=== PATIENT | male | born 1965 | race Caucasian/White ===

== ENCOUNTER → 2018-04-23 09:19 | Outpatient (CLI) | payer BC, SELFPAY ==
[2018-04-23 10:08] LABS: Basophils % 0.6 % (0.1-2.0); Eosinophils # 0.4 K/mm3 (0.0-0.4); Eosinophils % 5.9 % (0.1-12.0); Hematocrit 46.7 % (42.0-52.0); Hemoglobin 15.9 g/dL (14.1-18.0); Lymphocytes # 1.4 K/mm3 (0.7-4.5); Lymphocytes % 19.4 % (10-50); Mean Corpuscular HGB Conc 34.1 g/dL (31.8-35.4); Mean Corpuscular Hemoglobin 30.7 pg (27.0-31.2); Mean Corpuscular Volume 90.1 fl (80-94); Mean Platelet Volume 7.1 fl (7.4-10.4); Monocytes # 0.5 K/mm3 (0.1-1.0); Monocytes % 7.2 % (1.7-9.3); Neutrophils # 4.8 K/mm3 (1.8-7.8); Neutrophils % 66.8 % (37.0-80.0); Platelet Count 248 K/mm3 (142-424); Red Blood Count 5.19 M/mm3 (4.60-6.20); Red Cell Distribution Width 13.6 % (11.5-17.5); White Blood Count 7.2 K/mm3 (4.8-10.8)
[2018-04-23 11:12] LABS: Alanine Aminotransferase 36 U/L (12-78); Albumin Level 3.9 gm/dL (3.4-5.0); Albumin/Globulin Ratio 1.2 (1.1-1.8); Alkaline Phosphatase 98 U/L (46-116); Anion Gap 13.5 mEq/L (5-15); Aspartate Amino Transferase 15 U/L (15-37); Bilirubin,Total 0.7 mg/dL (0.2-1.0); Blood Urea Nitrogen 17 mg/dL (7-18); Calcium 8.9 mg/dL (8.5-10.1); Carbon Dioxide 27 mmol/L (21.0-32.0); Chloride 104 mmol/L (98-107); Chol/HDL Ratio 4.8 (1-3.5); Cholesterol 209 mg/dL (140-200); Creatinine,Serum 0.99 mg/dL (0.70-1.30); Estimated Glomerular Filt Rate 79 ml/min (>60); GFR (African American) 95 ML/MIN (>60); Globulin 3.2 gm/dl (1.3-3.2); Glucose 109 mg/dL (74-106); HDL Cholesterol 44 mg/dL (27-67); LDL Cholesterol 134 mg/dL (0-130); Potassium 4.5 mmoL/L (3.5-5.1); Prostate Specific Ag Screen 0.7 ng/mL (0.0-4.0); Sodium 140 mmol/L (136-145); Total Protein,Serum 7.1 gm/dL (6.4-8.2); Triglycerides 153 mg/dL (30-200); VLDL Cholesterol 31 mg/dL (0-40)
[2018-04-24 07:46] LABS: Free Thyroxine Index 2.6 ug/dL (5.93-13.13); T4 (Thyroxine) 6.6 ug/dl (4.7-13.3); Thyroid Stimulating Hormone 1.55 uIU/ml (0.358-3.740); Triiodothryronine (T3) Uptake 39 % (31-39)
[2018-04-25 08:01] LABS: Testosterone,Total 541 ng/dL (264-916); Vitamin B12 337 pg/mL (232-1245)
[2018-04-25 08:02] LABS: Vitamin D 25 Hydroxy 24.9 ng/mL (30.0-100.0)
== END ==
PROVIDERS: Nurse Practitioner Family; Visit Provider Internal Medicine Adolescent Medicine
DX: R73.9 Hyperglycemia, unspecified (principal); N52.9 Male erectile dysfunction, unspecified; R53.83 Other fatigue; R53.81 Other malaise; J01.00 Acute maxillary sinusitis, unspecified; Z86.39 Personal history of other endocrine, nutritional and metabolic disease
CPT/HCPCS: 36415; 80053; 80061; 82607; 82652; 83036; 84403; 84436; 84443; 84479; 85025; G0103

== ENCOUNTER → 2019-07-20 08:10 | Outpatient (CLI) | payer BC, SELFPAY ==
[2019-07-20 14:11] LABS: Coronavirus 19 IgG Antibody Negative (Negative); Coronavirus 19 IgM Antibody Negative (Negative)
== END ==
PROVIDERS: Visit Provider Internal Medicine Gastroenterology
DX: Z01.818 Encounter for other preprocedural examination (principal); Z12.11 Encounter for screening for malignant neoplasm of colon
CPT/HCPCS: 36415; 86328

== ENCOUNTER 2019-07-21 08:28 | Day surgery (SDC) | payer BC, SELFPAY ==
[2019-07-18 11:42] VITALS: BMI 36.1
--- NOTE | 2019-07-19 09:54 | SUR.PREOP ---
07/19/2019 @ 1000--PHONE CALL MADE TO PATIENT. PATIENT UNDERSTANDS THAT LAB WORK AND COVID TESTING NEEDS TO BE COMPLETED @ 0800 ON 07/20/2019. PATIENT UNDERSTANDS IF LAB WORK AND COVID-19 TESTS ARE NOT COMPLETED BY 12PM ON THAT DATE, THE SURGERY SCHEDULED WILL BE CANCELLED AND RESCHEDULED FOR ANOTHER TIME.
[2019-07-21 08:48] VITALS: BP 144/83; PULSE 85; RESP 18; TEMP 36.9; O2SAT 97
[2019-07-21 09:38] VITALS: O2SAT 95
--- NOTE | 2019-07-21 09:48 | HMH.ANESCL ---
[facility] Anesthesia Checklist - Structural Data Admitted From: Home Planned Operative Procedure/s: colonoscopy Consent for Planned Operative Procedure(s) Verified: Yes - Airway Assessment C-Spine Mobility Assessed: Yes TMJ Mobility Assessed: Yes Dentition: Good Dentition - Neurological Assessment Level of Consciousness: Awake, Alert, Appropriate - Anesthesia Plan Anesthesia Risk discussed: Yes Anesthesia Plan: Verified ASA Class: II Anesthesia Type: MAC [facility] History I have reviewed the patient's past medical history: Yes Medical History: Reports:: Hypertension Denies:: Cancer, Diabetes Mellitus Type 1, Diabetes Mellitus Type 2, Internal Pacemaker, MRSA, Seizures *Have you ever received a pneumonia vaccine?: No *Have you received a flu vaccine this season?: No Anesthesia experience/problems:: none Laterality Cases: Left: Total Knee Replacement, Bilateral: Carpal Tunnel Release Other Surgeries: No: Pacemaker Amputation: No Fractures: No - *Social History Alcohol Intake: current Alcohol Intake Frequency:: 0-2 drinks per day Substance Use Type: denies use *Occupational Status:: employed Housing: house *Travel in the last 8 weeks: None Family Hx:: No significant family history
--- NOTE | 2019-07-21 10:05 | P.PCN_ITS ---
[facility] Procedure Note Procedure Note:: Colonoscopy Procedure Report: Colonoscopy Endoscopist: Sanjay Hall II, MD Referring physician: Bonifacio Andrdae M.D. Date of Procedure: July 19, 2019 Equipment: Olympus 180 variable stiffness pediatric colonoscope Sedation: MAC sedation Indication: Mr. Ross is a 54-year-old gentleman who is here for an initial screening colonoscopy. He reports no abdominal pain, weight loss, change in his bowel habits or rectal bleeding. He does have occasional spotting of blood from internal hemorrhoids. He reports no family history of colon cancer. Procedure: Prior to the procedure, a history and physical exam was performed, and patient's medications and allergies were reviewed. The risks, benefits and alternatives of the sedation and procedure were discussed with the patient. All questions were answered and informed consent was obtained. The patient was brought to the procedure room. Patient identification and proposed procedure were verified by the physician and the nurse. The patient was placed in a left lateral decubitus position and the scope was passed under direct vision. Throughout the procedure, the patient's blood pressure, pulse, and oxygen saturations were monitored continuously. The colonoscopy was accomplished without difficulty. The patient tolerated the procedure well. Findings: On digital rectal examination there was normal rectal tone. There were no external hemorrhoids. The prostate was 2+, smooth, soft, symmetric without nodules. The colonoscope was introduced through the anal canal to the rectum and advanced to the cecum. The ileocecal valve and appendiceal orifice were identified. The scope was advanced a short distance into the ileum which appeared grossly normal. The scope was then withdrawn into the colon. The cecum, ascending, transverse, descending, sigmoid and rectum were grossly normal. There were no mucosal abnormalities identified. Upon retroflexion within the rectum there were grade 1-2 internal hemorrhoids.The preparation was excellent throughout with [place] Preparation Score of 9. The cecal time was 10 minutes. Impression: 1. Normal colonoscopy with intubation of the terminal ileum 2. Grade 1-2 internal hemorrhoids Plan: The patient will not require screening/surveillance colonoscopy again for 10 years by ACS guidelines. I would encourage fiber supplementation on a long-term daily maintenance basis.
[2019-07-21 10:10] VITALS: BP 113/85; PULSE 82; RESP 18; TEMP 36.3; O2SAT 94
[2019-07-21 10:20] VITALS: BP 111/70; PULSE 66; RESP 18; TEMP 36.3; O2SAT 97
[2019-07-21 10:30] VITALS: BP 131/87; PULSE 68; RESP 18; TEMP 36.3; O2SAT 98
[2019-07-21 10:40] VITALS: BP 124/79; PULSE 68; RESP 18; TEMP 36.3; O2SAT 98
== END 2019-07-21 10:43 | disposition home or self-care (01) ==
LOC: OUTP 08:29
PROVIDERS: PCP Internal Medicine Adolescent Medicine; Visit Provider Internal Medicine Gastroenterology
PROC: 0DJD8ZZ Inspection of Lower Intestinal Tract, Via Natural or Artificial Opening Endoscopic (ICD-10-PCS; CPT 45378; principal; 2019-07-21 09:30)
DX: Z12.11 Encounter for screening for malignant neoplasm of colon (principal); K64.0 First degree hemorrhoids; I10 Essential (primary) hypertension; K21.9 Gastro-esophageal reflux disease without esophagitis; Z87.39 Personal history of other diseases of the musculoskeletal system and connective tissue; Z79.899 Other long term (current) drug therapy; Z88.5 Allergy status to narcotic agent; Z96.652 Presence of left artificial knee joint
CPT/HCPCS: 45378

== ENCOUNTER → 2019-08-04 13:18 | Outpatient (CLI) | payer BC, SELFPAY ==
--- NOTE | 2019-08-04 | CA_ITS ---
APPROVED REPORT Rat Culturist: CT Laterality: Bilateral Study Quality: Fair, Due to body habitus. Indications: dizziness, syncope Doppler Spectral Velocity Analysis ECA (R) 79.70/12.80 cm/s ECA (L) 73.20/17.30 cm/s Dede (R) 75.90/28.90 cm/s dICA (L) 64.20/21.80 cm/s pICA (R) 90.40/33.10 cm/s Dede (L) 58.40/22.50 cm/s pICA (L) 50.70/16.70 cm/s dCCA (R) 73.70/21.40 cm/s pCCA (R) 93.40/21.40 cm/s dCCA (L) 100.20/17.10 cm/s pCCA (L) 125.90/19.70 cm/s Vert (R) 37.40/11.60 cm/s ICA/CCA 1.30 Vert (L) 31.20/8.60 cm/s ICA/CCA 0.70 Findings Duplex evaluation demonstrates stenosis of the right proximal internal carotid artery <20% with PSV <140 cm/sec, EDV <100 cm/sec, and IC/CC Ratio <4.0. Duplex evaluation demonstrates stenosis of the left proximal internal carotid artery <20% with PSV <140 cm/sec, EDV <100 cm/sec, and IC/CC Ratio <4.0. Duplex evaluation demonstrates antegrade flow of the bilateral Vertebral Arteries. Conclusion No increased velocities to suggest hemodynamically significant stenosis in either internal carotid artery. Electronically signed by : Yonas Cole MD 08/04/2019 17:02:59
== END ==
PROVIDERS: PCP Internal Medicine Adolescent Medicine; Visit Provider Nurse Practitioner Family
DX: R55 Syncope and collapse (principal)
CPT/HCPCS: 93306; 93880

== ENCOUNTER → 2019-11-06 09:34 | Outpatient (CLI) | payer BC, SELFPAY ==
[2019-11-06 11:45] LABS: Alanine Aminotransferase 23 U/L (12-78); Albumin Level 4.2 g/dl (3.5-5.0); Albumin/Globulin Ratio 1.4 (1.1-1.8); Alkaline Phosphatase 109 U/L (38-126); Aspartate Amino Transferase 25 U/L (17-59); Bilirubin,Total 0.4 mg/dl (0.2-1.3); Blood Urea Nitrogen 15 mg/dl (9-20); Calcium 9.5 mg/dl (8.4-10.2); Carbon Dioxide 29 mmol/L (22.0-30.0); Chloride 107 mmol/L (98-107); Chol/HDL Ratio 4.7 (1-3.5); Cholesterol 227 mg/dl (140-200); Estimated Glomerular Filt Rate 78 ml/min (>60); GFR (African American) 94 ML/MIN (>60); Globulin 2.9 g/dL (1.3-3.2); Glucose 109 mg/dl (74-100); HDL Cholesterol 48 mg/dl (40-60); Sodium 141 mmol/L (136-145); Total Protein,Serum 7.1 g/dl (6.3-8.2); Triglycerides 205 mg/dl (30-150); Uric Acid 7.5 mg/dl (3.5-8.5); VLDL Cholesterol 41 mg/dL (0-40)
[2019-11-06 11:55] LABS: Direct LDL Cholesterol 136.95 mg/dL (100-129)
[2019-11-06 12:01] LABS: 25-OH Vitamin D, Total 72.1 ng/mL (30-100)
[2019-11-07 14:58] LABS: Hemoglobin A1C 6.2 % (4.0-6.0)
== END ==
PROVIDERS: Visit Provider Nurse Practitioner Family
DX: I10 Essential (primary) hypertension (principal); E78.5 Hyperlipidemia, unspecified; M10.9 Gout, unspecified; E55.9 Vitamin D deficiency, unspecified; R73.9 Hyperglycemia, unspecified
CPT/HCPCS: 36415; 80053; 80061; 82306; 83036; 84550

== ENCOUNTER → 2020-02-03 08:29 | Outpatient (CLI) | payer BC, SELFPAY ==
[2020-02-03 10:29] LABS: Alanine Aminotransferase 25 U/L (12-78); Albumin Level 4.4 g/dl (3.5-5.0); Albumin/Globulin Ratio 1.5 (1.1-1.8); Alkaline Phosphatase 93 U/L (38-126); Aspartate Amino Transferase 28 U/L (17-59); Bilirubin,Total 0.7 mg/dl (0.2-1.3); Blood Urea Nitrogen 17 mg/dl (9-20); Calcium 9.7 mg/dl (8.4-10.2); Carbon Dioxide 31 mmol/L (22.0-30.0); Chloride 103 mmol/L (98-107); Chol/HDL Ratio 5.1 (1-3.5); Cholesterol 225 mg/dl (140-200); Estimated Glomerular Filt Rate 77 ml/min (>60); GFR (African American) 94 ML/MIN (>60); Glucose 106 mg/dl (74-100); HDL Cholesterol 44 mg/dl (40-60); Sodium 139 mmol/L (136-145); Total Protein,Serum 7.4 g/dl (6.3-8.2); Triglycerides 190 mg/dl (30-150); Uric Acid 6.9 mg/dl (3.5-8.5); VLDL Cholesterol 38 mg/dL (0-40)
[2020-02-03 10:45] LABS: Direct LDL Cholesterol 138.09 mg/dL (100-129)
[2020-02-03 10:46] LABS: 25-OH Vitamin D, Total 64.7 ng/mL (30-100)
== END ==
PROVIDERS: Visit Provider Nurse Practitioner Family
DX: Z00.00 Encounter for general adult medical examination without abnormal findings (principal); I10 Essential (primary) hypertension; E78.5 Hyperlipidemia, unspecified; E55.9 Vitamin D deficiency, unspecified; M10.9 Gout, unspecified
CPT/HCPCS: 36415; 80053; 80061; 82306; 84550

== ENCOUNTER → 2021-01-06 10:30 | Outpatient (CLI) | payer BC, SELFPAY ==
--- NOTE | 2021-01-06 10:45 | XR_ITS ---
PROCEDURE: XR CHEST 2V CLINICAL HISTORY: PERSISTENT COUGH COMPARISON: CR CXR CHEST(2 VIEWS-NOT PORTABLE) from 12/12/2014 CR CXR CHEST(2 VIEWS-NOT PORTABLE) from 03/02/2016 FINDINGS: The cardiomediastinal silhouette and pulmonary vascularity are within normal limits. The lungs are clear without infiltrates, suspicious nodules, or pleural effusions. No acute bony abnormalities. IMPRESSION: No acute findings. Dictated by: Yonas Cole MD 01/06/2021 11:17 Yonas Cole MD in [place] 01/06/2021 11:17
[2021-01-06 11:35] LABS: Alanine Aminotransferase 30 U/L (12-78); Albumin Level 4.5 g/dl (3.5-5.0); Albumin/Globulin Ratio 1.6 (1.1-1.8); Alkaline Phosphatase 98 U/L (38-126); Anion Gap 11.7 mEq/L (5-15); Aspartate Amino Transferase 29 U/L (17-59); Bilirubin,Total 0.5 mg/dl (0.2-1.3); Blood Urea Nitrogen 13 mg/dl (9-20); Calcium 9.8 mg/dl (8.4-10.2); Carbon Dioxide 30 mmol/L (22.0-30.0); Chloride 102 mmol/L (98-107); Chol/HDL Ratio 5.2 (1-3.5); Cholesterol 246 mg/dl (140-200); Estimated Glomerular Filt Rate 69 ml/min (>60); GFR (African American) 84 ML/MIN (>60); Globulin 2.9 g/dL (1.3-3.2); Glucose 111 mg/dl (74-100); HDL Cholesterol 47 mg/dl (40-60); Potassium 4.7 mmoL/L (3.5-5.1); Sodium 139 mmol/L (136-145); Total Protein,Serum 7.4 g/dl (6.3-8.2); Triglycerides 230 mg/dl (30-150); Uric Acid 8.2 mg/dl (3.5-8.5); VLDL Cholesterol 46 mg/dL (0-40)
[2021-01-06 11:52] LABS: 25-OH Vitamin D, Total 56.2 ng/mL (30-100)
[2021-01-06 20:02] LABS: Hemoglobin A1C 6.5 % (4.0-6.0)
== END ==
PROVIDERS: Nurse Practitioner Family; Visit Provider Nurse Practitioner Family
DX: E78.5 Hyperlipidemia, unspecified (principal); R73.9 Hyperglycemia, unspecified; E55.9 Vitamin D deficiency, unspecified; M10.9 Gout, unspecified
CPT/HCPCS: 36415; 71046; 80053; 80061; 82306; 83036; 84550

== ENCOUNTER → 2021-03-25 10:38 | Outpatient (CLI) | payer BC, SELFPAY ==
--- NOTE | 2021-03-25 10:43 | XR_ITS ---
FINAL REPORT CLINICAL HISTORY: kidney stone FINDINGS: SINGLE VIEW ABDOMEN There is a nonspecific, nonobstructive gas pattern. Bowel gas and stool obscure the renal outlines. There are presumed left renal stones measuring up to 4 mm. There are probably 2 small stones in the lower pole of the right kidney measuring 2 mm. There is fusion of L4-5. IMPRESSION: Nephrolithiasis as above. Reviewed, Interpreted and Dictated by Peewee Partida III, MD Transcribed by Anita Seaman Authenticated by Peewee Partida III, MD on 03/25/2021 11:32:19 AM [facility]
== END ==
PROVIDERS: PCP Internal Medicine Adolescent Medicine; Visit Provider Urology
DX: N20.0 Calculus of kidney (principal)
CPT/HCPCS: 74018

== ENCOUNTER → 2021-04-01 08:27 | Outpatient (CLI) | payer BC, SELFPAY ==
--- NOTE | 2021-04-01 08:31 | XR_ITS ---
FINAL REPORT CLINICAL HISTORY: kidney stone..lt side pain..pain x 2 weeks COMPARISON: 03/25/2021 FINDINGS: SINGLE VIEW ABDOMEN There is a nonspecific, nonobstructive gas pattern. There is no bowel dilatation. There is a moderate amount of stool throughout the colon. There are several bilateral renal stones measuring up to approximately 3 mm. The osseous structures demonstrate fusion at L4-5 and mild degenerative changes of the lumbar spine. IMPRESSION: Bilateral nephrolithiasis. Reviewed, Interpreted and Dictated by Peewee Partida III, MD Transcribed by Anita Seaman Authenticated by Peewee Partida III, MD on 04/01/2021 09:39:32 AM [facility]
== END ==
PROVIDERS: PCP Internal Medicine Adolescent Medicine; Visit Provider Urology
DX: N20.0 Calculus of kidney (principal)
CPT/HCPCS: 74018

== ENCOUNTER 2023-10-25 06:52 | Outpatient (CLI) | payer BC, OTHER, SELFPAY ==
--- NOTE | 2023-10-25 | CT_ITS ---
FINAL REPORT TECHNIQUE: Axial imaging of the lumbar spine was obtained without contrast. Sagittal and coronal reformatted images were also obtained and reviewed. This study was performed with techniques to keep radiation doses as low as reasonably achievable (ALARA). Individualized dose reduction techniques using automated exposure control or adjustment of mA and/or kV according to the patient's size were employed. CLINICAL HISTORY: LBP COMPARISON: None FINDINGS: There is no fracture. Fusion has been performed at the L4-5 level. There is mild retrolisthesis of L2 on L3, and L5 on S1. Vacuum phenomenon is present at the L2-3 and L5-S1 levels. L1-L2: An annular bulge is present with osteophytes, and moderate bilateral neural foraminal narrowing. L2-L3: An annular bulge is present with osteophytes, with severe bilateral neural foraminal narrowing and mild canal stenosis with an AP canal diameter of 7 mm. L3-L4: An annular bulge is present with facet arthropathy and osteophytes. There is severe bilateral neural foraminal narrowing, bilateral lateral recess stenosis, and mild canal stenosis with an AP canal diameter of 7 mm. L4-L5: Fusion has been performed at this level, and there is severe bilateral neural foraminal narrowing. L5-S1: An annular bulge is present with facet arthropathy, and severe bilateral neural foraminal narrowing. Small bilateral nonobstructing renal stones are present. There is mild degenerative change of the sacroiliac joints, more prominent on the right than on the left. IMPRESSION: Multilevel degenerative change of the lumbar spine with multilevel neural foraminal narrowing and mild canal stenosis at the L2-3 and L3-4 levels. Mild degenerative change of the SI joints, more prominent on the right than the left. Several small bilateral nonobstructing renal stones are present.. Reviewed, Interpreted and Dictated by Peewee Partida III, MD Transcribed by Sabi Murphy Authenticated and [facility]
== END 2023-10-25 23:59 | disposition home or self-care (01) ==
LOC: RAD 06:54
PROVIDERS: PCP Internal Medicine Adolescent Medicine; Visit Provider Orthopaedic Surgery
DX: M54.50 Low back pain, unspecified (principal)
CPT/HCPCS: 72131

== ENCOUNTER 2023-11-04 13:46 | Emergency (ER) | payer BC, OTHER, SELFPAY ==
[2023-11-04] VITALS (8 sets, daily range): BP systolic 128–149; BP diastolic 85–97; PULSE 61–99; RESP 13–22; TEMP 36.6–37.2; O2SAT 92–100; BMI 29.0
--- NOTE | 2023-11-04 13:47 | ECG_ITS ---
APPROVED REPORT Exam: Resting ECG HR:88 bpm ECG Measurements Heart Rate 88 AXES SD 140 P 48 QRSd 89 QRS 32 QT 332 T 18 QTc 377 Conclusion SINUS RHYTHM NORMAL ECG UNCONFIRMED REPORT Electronically signed by : JOY LEIVA, 11/05/2023 06:37:48
--- NOTE | 2023-11-04 13:50 | XR_ITS ---
FINAL REPORT CLINICAL HISTORY: Shortness of breath, chest pain COMPARISON: 01/06/2021 FINDINGS: The heart size is normal. The mediastinum is normal. The lungs are underinflated. There are mild chronic changes in the lung bases. There is no focal infiltrate or edema. There are no pleural effusions. There is no pneumothorax. There is no osseous abnormality. IMPRESSION: Chronic changes without acute cardiopulmonary process Reviewed, Interpreted and Dictated by Jerod Flaherty MD Transcribed by Erum Dobbs Authenticated and [facility]
--- NOTE | 2023-11-04 13:50 | [facility].EDGENADL ---
Discharge Plan Disposition Patient Disposition: Home, Self-Care Condition: Good Prescriptions Prescriptions: New naproxen 500 mg tablet 500 mg PO BID Qty: 20 0RF lidocaine [Lidoderm] 5 % adhesive patch,medicated 1 patch topical DAILY Qty: 15 0RF Rx Instructions: leave on most painful area for up to 12 hrs No Action hydromorphone 2 MG tablet 2 mg PO Q4HP PRN (Reason: Moderate To Severe Pain) Qty: 10 0RF meloxicam 15 MG tablet 15 mg PO DAILY famotidine 20 MG tablet 20 mg PO BID lisinopril 10 MG tablet 10 mg PO DAILY cyanocobalamin (vitamin B-12) 5,000 MCG tablet,disintegrating 2,500 mcg PO DAILY cholecalciferol (vitamin D3) 1,000 UNIT capsule 5,000 unit PO DAILY Referrals Follow up/Referrals: Renee Estrada APRN [Primary Care Provider] - See instructions Activity Restrictions/Add. Instructions Additional Instructions/Restrictions: You were evaluated in the emergency department today. Please pickler helper your prescriptions at the pharmacy and take them as prescribed. Follow-up closely with your primary care provider. Return to the emergency department for new or worsening symptoms. Clinical Impressions Clinical Impression: Pleurisy Instructions Patient Instructions: DI for Atypical Chest Pain, DI for Chest Pain Print Language Print Language: Persian Discharge ED Provider: Ekaterina Bennett General Adult HPI <Gerald Edwards MD - Last Filed: 11/04/23 15:52> General Chief complaint: Shortness of Breath/Dyspnea Stated complaint: chest pain Time Seen by Provider: 11/04/23 13:50 History of Present Illness HPI narrative: The patient presents with right-sided chest pain that worsens upon straightening up and causes difficulty in taking deep breaths. The pain began gradually today and has been progressively worsening. He denies any recent illness, cough, or travel. He has a history of L4-L5 fusion and is scheduled for an epidural injection tomorrow. He denies any wheezing but reports that the shortness of breath is secondary to the pain. The pain is described as deep and located around the right side, extending to the back. He has a history of costochondritis but reports that the current pain feels different. He denies any lung or heart conditions, blood clots, leg pain, or leg swelling. He admits to smoking marijuana. He reports taking ibuprofen and a hot shower for relief, but the pain has continued to worsen. He mentions cleaning the front porch a few days ago, which caused some pain. He describes the pain as different from his previous experience with costochondritis, stating that it's not as severe but worsens when stretching out. He denies any relation between the pain and meals and confirms having his gallbladder. He reports no nausea. Please note that above description of symptoms, in this electronic medical record under categorization of recalled from ER triage doctor by RN are reflective of an initial nursing assessment, however, is not reflective of my full history and physical exam that was personally taken and clarified. Consequentially, this preceding description of symptoms, which may include the patient's categorized chief complaint in the EMR, do not reflect my personal clinical impression, and the ultimate description of history of present illness and patient stated complaints should be deferred to this section of the note. Unless stated otherwise or congruent with this section of the note, additional signs, symptoms, or incongruence should be interpreted as inaccurate with my clinical impression. Related Data Home Medications ?Medication ?Instructions ?Recorded ?Confirmed cholecalciferol (vitamin D3) 25 5,000 unit PO DAILY Supplement 07/18/19 04/01/21 mcg (1,000 unit) capsule cyanocobalamin (vitamin B-12) 2,500 mcg PO DAILY Supplement 07/18/19 04/01/21 5,000 mcg disintegrating tablet famotidine 20 mg tablet 20 mg PO BID acid reflux 07/18/19 04/01/21 lisinopril 10 mg tablet 10 mg PO DAILY bp 07/18/19 04/01/21 meloxicam 15 mg tablet 15 mg PO DAILY Arthritis 07/18/19 04/01/21 Previous Rx's ?Medication ?Instructions ?Recorded hydromorphone 2 mg tablet 2 mg PO Q4HP PRN Moderate To 03/25/21 Severe Pain #10 tabs lidocaine 5 % topical patch 1 patch topical DAILY #15 ea 11/04/23 (Lidoderm) naproxen 500 mg tablet 500 mg PO BID #20 tabs 11/04/23 Allergies Allergy/AdvReac Type Severity Reaction Status Date / Time celecoxib [From Celebrex] Allergy Verified 04/01/21 09:13 hydrocodone Allergy Verified 04/01/21 09:13 [facility] <Gerald Edwards MD - Last Filed: 11/04/23 15:52> [facility] Disclaimer: The information contained in this section may have been updated after the patient was seen, as this information can be updated by other users. Social History Smoking Status: Current every day smoker alcohol intake: current alcohol intake frequency: 0-2 drinks per day substance use type: denies use current occupational status: employed Travel in the last 8 weeks: None household members: spouse and family housing: house caffeine: Yes <Gerald Edwards MD - Last Filed: 11/04/23 15:52> ROS Obtained: Yes other As per HPI Physical Exam <Gerald Edwards MD - Last Filed: 11/04/23 15:52> General General appearance: alert and in no apparent distress Head Head exam: atraumatic and normocephalic Eye Eye exam: Present normal appearance Neck Neck exam: Present normal inspection Chest Chest inspection: Present normal inspection and symmetric chest wall rise Respiratory Respiratory exam: Present normal lung sounds bilaterally; Absent respiratory distress Cardiovascular Cardiovascular exam: Present regular rate and normal rhythm Abdominal Exam Abdominal exam: Present soft Neurological Exam Neurological exam: Present alert and oriented X3 Psychiatric Psychiatric exam: Present normal affect and normal mood Skin Skin exam: Present warm and dry Other Other exam information: No abdominal tenderness to palpation, no overt chest wall reproducible tenderness to palpation Medical Decision Making <Gerald Edwards MD - Last Filed: 11/04/23 15:52> Medical Records Medical records reviewed: Yes I reviewed the patient's medical records. Screening: Per USPSTF and CDC recommendations, given the prevalence of disease in our region, it is our hospital?s policy to screen for HIV and viral Hepatitis for all patients aged 18 and over and those with ongoing risk factors. Andres Inquiry Pt receiving controlled substance: No Vital Signs: 11/04/23 13:47 11/04/23 14:30 11/04/23 15:00 Temperature 99.0 F Temperature Source Oral Pulse Rate 79 67 Pulse Rate [Left Radial] 99 H Respiratory Rate 13 22 13 Blood Pressure 142/86 H 132/86 Blood Pressure [Right Arm] 149/97 H Blood Pressure Mean Blood Pressure Mean [Right Arm] 114 Blood Pressure Source Blood Pressure Position 02 Sat by Pulse Oximetry 100 98 92 L Oxygen Delivery Method Room Air Room Air Room Air 11/04/23 15:30 11/04/23 16:00 11/04/23 16:30 Temperature Temperature Source Pulse Rate 68 65 72 Pulse Rate [Left Radial] Respiratory Rate 16 18 16 Blood Pressure 140/93 H 139/90 128/85 Blood Pressure [Right Arm] Blood Pressure Mean 113 110 113 Blood Pressure Mean [Right Arm] Blood Pressure Source Blood Pressure Position 02 Sat by Pulse Oximetry 94 L 95 98 Oxygen Delivery Method 11/04/23 17:00 11/04/23 17:44 Temperature 97.9 F Temperature Source Oral Pulse Rate 61 68 Pulse Rate [Left Radial] Respiratory Rate 20 16 Blood Pressure 137/86 146/87 H Blood Pressure [Right Arm] Blood Pressure Mean 103 Blood Pressure Mean [Right Arm] Blood Pressure Source Automatic Cuff Blood Pressure Position Sitting 02 Sat by Pulse Oximetry 99 Oxygen Delivery Method Room Air Lab Data Lab Results 11/04/23 13:50: WBC 9.6, RBC 5.33, Hgb 16.9, Hct 53.3 H, MCV 100.0 H, MCH 31.7 H, MCHC 31.7 L, RDW 13.7, Plt Count 274, MPV 7.7, Neut % (Auto) 71.9, Lymph % (Auto) 19.0, [place] % (Auto) 6.3, Eos % (Auto) 2.0, Baso % (Auto) 0.8, Neut # (Auto) 6.9, Lymph # (Auto) 1.8, [place] # (Auto) 0.6, Eos # (Auto) 0.2, Baso # (Auto) 0.1, Sodium 139, Potassium 4.2, Chloride 106, Carbon Dioxide 29, Anion Gap 8.2, BUN 14, Creatinine 0.90, Estimated Creat Clear 102, Estimated GFR 86, Est GFR ( Amer) 105, Glucose 126 H, Calcium 9.7, Total Bilirubin 0.6, AST 37, ALT 39, Alkaline Phosphatase 90, Troponin I < 0.01, NT-Pro-B Natriuret Pep 21.2, Total Protein 7.8, Albumin 4.6, Globulin 3.2, Albumin/Globulin Ratio 1.4, Lipase 87, HIV 1&2 Antibody Rapid Nonreactive 11/04/23 16:36: Troponin I < 0.01 11/04/23 13:50 11/04/23 13:50 Orders (Tests/Meds): ED MEDICATIONS Discontinued Medications Generic Name Dose Route Start Last Admin Trade Name Freq PRN Reason Stop Dose Admin Iopamidol 70 ml 11/04/23 14:48 11/04/23 14:50 Iopamidol-370 (76%);100ml Bottle IV 11/04/23 14:49 70 ml ONCE ONE Administration Ketorolac Tromethamine 15 mg 11/04/23 14:50 11/04/23 15:02 Ketorolac 30mg/Ml Vial IV 11/04/23 14:51 15 mg ONCE ONE Administration Methocarbamol 1,000 mg 11/04/23 14:50 11/04/23 15:01 Methocarbamol 500mg Tablet PO 11/04/23 14:51 1,000 mg ONCE STA Administration Sodium Chloride 10 ml 11/04/23 14:48 11/04/23 14:49 Sodium Chloride 0.9% 10ml Syr (Rad Only) IV 11/04/23 14:49 10 ml ONCE ONE Administration Sodium Chloride 50 ml 11/04/23 14:48 11/04/23 14:49 0.9 % Sodium Chloride 50 Ml Vial IV 11/04/23 14:49 50 ml ONCE ONE Administration ORDERS Category Date Time Status CTA Chest [CT angio chest PE protocol] Stat Cat Scan 11/04/23 14:35 Completed XR chest portable Stat Exams 11/04/23 13:50 Completed BNP [NT Pro Brain Natriuretic Pep.] Stat Lab 11/04/23 13:50 Completed CBC w/Auto Diff [Complete Blood Count Auto Diff] Stat Lab 11/04/23 13:50 Completed CMP [Comprehensive Metabolic Panel] Stat Lab 11/04/23 13:50 Completed HIV (1&2) Antibody Rapid Stat Lab 11/04/23 13:50 Completed Hep C Ab with Reflex to RNA Stat Lab 11/04/23 13:50 Received Lipase Stat Lab 11/04/23 13:50 Completed Troponin I Q3H Lab 11/04/23 13:50 Completed Troponin I Q3H Lab 11/04/23 16:36 Completed HEART Score History (anamnesis): Moderately suspicious ECG: Non-specific disturbance Age: 45-65 years Risk factors: 1-2 risk factors Troponin: </= normal limit HEART Score: 4 Medical Decision Narrative: Patient with history and exam per above presenting for evaluation of right-sided chest pain Diagnoses considered include costochondritis, pleural effusion, referred pain from pneumonia, pulmonary embolism, ACS, among others ED workup and treatment included: ED MEDICATIONS Discontinued Medications Generic Name Dose Route Start Last Admin Trade Name Augie PRN Reason Stop Dose Admin Iopamidol 70 ml 11/04/23 14:48 11/04/23 14:50 Iopamidol-370 (76%);100ml Bottle IV 11/04/23 14:49 70 ml ONCE ONE Administration Ketorolac Tromethamine 15 mg 11/04/23 14:50 11/04/23 15:02 Ketorolac 30mg/Ml Vial IV 11/04/23 14:51 15 mg ONCE ONE Administration Methocarbamol 1,000 mg 11/04/23 14:50 11/04/23 15:01 Methocarbamol 500mg Tablet PO 11/04/23 14:51 1,000 mg ONCE STA Administration Sodium Chloride 10 ml 11/04/23 14:48 11/04/23 14:49 Sodium Chloride 0.9% 10ml Syr (Rad Only) IV 11/04/23 14:49 10 ml ONCE ONE Administration Sodium Chloride 50 ml 11/04/23 14:48 11/04/23 14:49 0.9 % Sodium Chloride 50 Ml Vial IV 11/04/23 14:49 50 ml ONCE ONE Administration ORDERS Category Date Time Status CTA Chest [CT angio chest PE protocol] Stat Cat Scan 11/04/23 14:35 Taken XR chest portable Stat Exams 11/04/23 13:50 Taken BNP [NT Pro Brain Natriuretic Pep.] Stat Lab 11/04/23 13:50 Completed CBC w/Auto Diff [Complete Blood Count Auto Diff] Stat Lab 11/04/23 13:50 Completed CMP [Comprehensive Metabolic Panel] Stat Lab 11/04/23 13:50 Completed HIV (1&2) Antibody Rapid Stat Lab 11/04/23 13:50 Received Hep C Ab with Reflex to RNA Stat Lab 11/04/23 13:50 Received Lipase Stat Lab 11/04/23 13:50 Completed Troponin I Q3H Lab 11/04/23 13:50 Completed Troponin I Q3H Lab 11/04/23 17:00 Ordered Results pending at this time. Care was transferred to incoming physician. <Ekaterina Bennett, DO - Last Filed: 11/04/23 17:55> Vital Signs: 11/04/23 13:47 11/04/23 14:30 11/04/23 15:00 Temperature 99.0 F Temperature Source Oral Pulse Rate 79 67 Pulse Rate [Left Radial] 99 H Respiratory Rate 13 22 13 Blood Pressure 142/86 H 132/86 Blood Pressure [Right Arm] 149/97 H Blood Pressure Mean Blood Pressure Mean [Right Arm] 114 Blood Pressure Source Blood Pressure Position 02 Sat by Pulse Oximetry 100 98 92 L Oxygen Delivery Method Room Air Room Air Room Air 11/04/23 15:30 11/04/23 16:00 11/04/23 16:30 Temperature Temperature Source Pulse Rate 68 65 72 Pulse Rate [Left Radial] Respiratory Rate 16 18 16 Blood Pressure 140/93 H 139/90 128/85 Blood Pressure [Right Arm] Blood Pressure Mean 113 110 113 Blood Pressure Mean [Right Arm] Blood Pressure Source Blood Pressure Position 02 Sat by Pulse Oximetry 94 L 95 98 Oxygen Delivery Method 11/04/23 17:00 11/04/23 17:44 Temperature 97.9 F Temperature Source Oral Pulse Rate 61 68 Pulse Rate [Left Radial] Respiratory Rate 20 16 Blood Pressure 137/86 146/87 H Blood Pressure [Right Arm] Blood Pressure Mean 103 Blood Pressure Mean [Right Arm] Blood Pressure Source Automatic Cuff Blood Pressure Position Sitting 02 Sat by Pulse Oximetry 99 Oxygen Delivery Method Room Air Lab Data Lab Results 11/04/23 13:50: WBC 9.6, RBC 5.33, Hgb 16.9, Hct 53.3 H, MCV 100.0 H, MCH 31.7 H, MCHC 31.7 L, RDW 13.7, Plt Count 274, MPV 7.7, Neut % (Auto) 71.9, Lymph % (Auto) 19.0, [place] % (Auto) 6.3, Eos % (Auto) 2.0, Baso % (Auto) 0.8, Neut # (Auto) 6.9, Lymph # (Auto) 1.8, [place] # (Auto) 0.6, Eos # (Auto) 0.2, Baso # (Auto) 0.1, Sodium 139, Potassium 4.2, Chloride 106, Carbon Dioxide 29, Anion Gap 8.2, BUN 14, Creatinine 0.90, Estimated Creat Clear 102, Estimated GFR 86, Est GFR ( Amer) 105, Glucose 126 H, Calcium 9.7, Total Bilirubin 0.6, AST 37, ALT 39, Alkaline Phosphatase 90, Troponin I < 0.01, NT-Pro-B Natriuret Pep 21.2, Total Protein 7.8, Albumin 4.6, Globulin 3.2, Albumin/Globulin Ratio 1.4, Lipase 87, HIV 1&2 Antibody Rapid Nonreactive 11/04/23 16:36: Troponin I < 0.01 Orders (Tests/Meds): ED MEDICATIONS Discontinued Medications Generic Name Dose Route Start Last Admin Trade Name Vincentq PRN Reason Stop Dose Admin Iopamidol 70 ml 11/04/23 14:48 11/04/23 14:50 Iopamidol-370 (76%);100ml Bottle IV 11/04/23 14:49 70 ml ONCE ONE Administration Ketorolac Tromethamine 15 mg 11/04/23 14:50 11/04/23 15:02 Ketorolac 30mg/Ml Vial IV 11/04/23 14:51 15 mg ONCE ONE Administration Methocarbamol 1,000 mg 11/04/23 14:50 11/04/23 15:01 Methocarbamol 500mg Tablet PO 11/04/23 14:51 1,000 mg ONCE STA Administration Sodium Chloride 10 ml 11/04/23 14:48 11/04/23 14:49 Sodium Chloride 0.9% 10ml Syr (Rad Only) IV 11/04/23 14:49 10 ml ONCE ONE Administration Sodium Chloride 50 ml 11/04/23 14:48 11/04/23 14:49 0.9 % Sodium Chloride 50 Ml Vial IV 11/04/23 14:49 50 ml ONCE ONE Administration ORDERS Category Date Time Status CTA Chest [CT angio chest PE protocol] Stat Cat Scan 11/04/23 14:35 Completed XR chest portable Stat Exams 11/04/23 13:50 Completed BNP [NT Pro Brain Natriuretic Pep.] Stat Lab 11/04/23 13:50 Completed CBC w/Auto Diff [Complete Blood Count Auto Diff] Stat Lab 11/04/23 13:50 Completed CMP [Comprehensive Metabolic Panel] Stat Lab 11/04/23 13:50 Completed HIV (1&2) Antibody Rapid Stat Lab 11/04/23 13:50 Completed Hep C Ab with Reflex to RNA Stat Lab 11/04/23 13:50 Received Lipase Stat Lab 11/04/23 13:50 Completed Troponin I Q3H Lab 11/04/23 13:50 Completed Troponin I Q3H Lab 11/04/23 16:36 Completed HEART Score HEART Score: 4 Medical Decision Narrative: Patient with history and exam per above presenting for evaluation of right-sided chest pain Diagnoses considered include costochondritis, pleural effusion, referred pain from pneumonia, pulmonary embolism, ACS, among others ED workup and treatment included: ED MEDICATIONS Discontinued Medications Generic Name Dose Route Start Last Admin Trade Name Freq PRN Reason Stop Dose Admin Iopamidol 70 ml 11/04/23 14:48 11/04/23 14:50 Iopamidol-370 (76%);100ml Bottle IV 11/04/23 14:49 70 ml ONCE ONE Administration Ketorolac Tromethamine 15 mg 11/04/23 14:50 11/04/23 15:02 Ketorolac 30mg/Ml Vial IV 11/04/23 14:51 15 mg ONCE ONE Administration Methocarbamol 1,000 mg 11/04/23 14:50 11/04/23 15:01 Methocarbamol 500mg Tablet PO 11/04/23 14:51 1,000 mg ONCE STA Administration Sodium Chloride 10 ml 11/04/23 14:48 11/04/23 14:49 Sodium Chloride 0.9% 10ml Syr (Rad Only) IV 11/04/23 14:49 10 ml ONCE ONE Administration Sodium Chloride 50 ml 11/04/23 14:48 11/04/23 14:49 0.9 % Sodium Chloride 50 Ml Vial IV 11/04/23 14:49 50 ml ONCE ONE Administration ORDERS Category Date Time Status CTA Chest [CT angio chest PE protocol] Stat Cat Scan 11/04/23 14:35 Taken XR chest portable Stat Exams 11/04/23 13:50 Taken BNP [NT Pro Brain Natriuretic Pep.] Stat Lab 11/04/23 13:50 Completed CBC w/Auto Diff [Complete Blood Count Auto Diff] Stat Lab 11/04/23 13:50 Completed CMP [Comprehensive Metabolic Panel] Stat Lab 11/04/23 13:50 Completed HIV (1&2) Antibody Rapid Stat Lab 11/04/23 13:50 Received Hep C Ab with Reflex to RNA Stat Lab 11/04/23 13:50 Received Lipase Stat Lab 11/04/23 13:50 Completed Troponin I Q3H Lab 11/04/23 13:50 Completed Troponin I Q3H Lab 11/04/23 17:00 Ordered Results pending at this time. Care was transferred to incoming physician. DO Donald: I assumed care of the patient at 1500. On reassessment he states he is feeling little bit better but is still having some pain when he takes a deep breath over on the right side. He also notes that it starting to go into his back a little bit. No abdominal pain, nausea, or vomiting. Workup is reassuring with troponins negative x 2. CT scan does not demonstrate a PE, acute inflammation, or other concerns. Liver enzymes are not elevated. Abdominal exam is benign with no tenderness. Ultimately, I feel he likely has pleurisy versus costochondritis versus referred pain from his chronic back pain. I feel he is appropriate for discharge home since we have excluded acute life-threatening pathology such as PE or ACS. Patient was given strict return precautions and was discharged after all questions were answered. I provided him with prescriptions for Lidoderm patches and naproxen. Critical Care <Gerald Edwards MD - Last Filed: 11/04/23 15:52> Critical Care Time Critical Care Time: No
--- NOTE | 2023-11-04 13:56 | PC.NURSE ---
XR AT BEDSIDE
[2023-11-04 14:01] LABS: Basophils # 0.1 K/mm3 (0-0.2); Basophils % 0.8 % (0.1-2.0); Eosinophils # 0.2 K/mm3 (0.0-0.4); Hematocrit 53.3 % (42.0-52.0); Hemoglobin 16.9 g/dL (14.1-18.0); Lymphocytes # 1.8 K/mm3 (0.7-4.5); Mean Corpuscular HGB Conc 31.7 g/dL (31.8-35.4); Mean Corpuscular Hemoglobin 31.7 pg (27.0-31.2); Mean Platelet Volume 7.7 fl (7.4-10.4); Monocytes # 0.6 K/mm3 (0.1-1.0); Monocytes % 6.3 % (1.7-9.3); Neutrophils # 6.9 K/mm3 (1.8-7.8); Neutrophils % 71.9 % (37.0-80.0); Platelet Count 274 K/mm3 (142-424); Red Blood Count 5.33 M/mm3 (4.60-6.20); Red Cell Distribution Width 13.7 % (11.5-17.5); White Blood Count 9.6 K/mm3 (4.8-10.8)
[2023-11-04 14:07] LABS: Albumin Level 4.6 g/dl (3.5-5.0); Chloride 106 mmol/L (98-107); Potassium 4.2 mmoL/L (3.5-5.1); Sodium 139 mmol/L (136-145)
[2023-11-04 14:10] LABS: Alanine Aminotransferase 39 U/L (12-78); Albumin/Globulin Ratio 1.4 (1.1-1.8); Alkaline Phosphatase 90 U/L (38-126); Anion Gap 8.2 mEq/L (5-15); Aspartate Amino Transferase 37 U/L (17-59); Bilirubin,Total 0.6 mg/dl (0.2-1.3); Blood Urea Nitrogen 14 mg/dl (9-20); Carbon Dioxide 29 mmol/L (22.0-30.0); Creatinine Clearance Estimated 102 mL/min (50-200); Estimated Glomerular Filt Rate 86 ml/min (>60); GFR (African American) 105 ML/MIN (>60); Globulin 3.2 g/dL (1.3-3.2); Lipase 87 U/L (23-300); Total Protein,Serum 7.8 g/dl (6.3-8.2)
[2023-11-04 14:11] LABS: Calcium 9.7 mg/dl (8.4-10.2); Glucose 126 mg/dl (74-100)
[2023-11-04 14:19] LABS: NT Pro Brain Natriuretic Pep. 21.2 pg/mL (0-125)
[2023-11-04 14:27] LABS: Troponin I < 0.01 ng/ml (0.00-0.034)
--- NOTE | 2023-11-04 14:35 | CT_ITS ---
FINAL REPORT TECHNIQUE: The patient was injected with IV contrast. Axial images were obtained through the chest in a PE protocol. 3-D reconstruction images were also performed. Individualized dose reduction techniques using automated exposure control or adjustment of the MA and/or KV according to patient's size were employed. CLINICAL HISTORY: acute pleuritic chest pain, R sided COMPARISON: None FINDINGS: Mediastinal vasculature is adequately opacified. No pulmonary artery filling defects are identified to suggest PE. There is no aortic dissection. There is no axillary adenopathy. There is no hilar or mediastinal adenopathy. The heart size is normal. There is no pericardial or pleural effusion. Limited images of the upper abdomen are unremarkable. No suspicious infiltrate or nodule is identified. IMPRESSION: No pulmonary embolus or dissection. Reviewed, Interpreted and Dictated by Jerod Flaherty MD Transcribed by Sabi Murphy Authenticated and [facility]
--- NOTE | 2023-11-04 14:36 | PC.NURSE ---
DR MONDRAGON AT BEDSIDE
[2023-11-04] MEDS: 0.9 % SODIUM CHLORIDE 50 ML VIAL IV (14:49)
[2023-11-04] MEDS: SODIUM CHLORIDE 0.9% 10ML SYR (RAD ONLY) 10 ML IV (14:49)
[2023-11-04] MEDS: IOPAMIDOL-370 (76%);100ML BOTTLE 70 ML IV (14:50)
[2023-11-04] MEDS: METHOCARBAMOL 500MG TABLET 1000 MG PO (15:01)
[2023-11-04] MEDS: KETOROLAC 30MG/ML VIAL 15 MG IV (15:02)
[2023-11-04 16:22] LABS: HIV (1&2) Antibody Rapid NONREACTIVE (NONREACTIVE)
[2023-11-04 17:15] LABS: Troponin I < 0.01 ng/ml (0.00-0.034)
[2023-11-06 09:32] LABS: HCV Ab Non Reactive (Non Reactive)
== END 2023-11-04 17:45 | disposition home or self-care (01) ==
PROVIDERS: Emergency Medicine; Emergency Provider Emergency Medicine; PCP Nurse Practitioner Family
DX: R09.1 Pleurisy (principal); R07.9 Chest pain, unspecified; R06.02 Shortness of breath
CPT/HCPCS: 71045; 71275; 80053; 83690; 83880; 84484; 85025; 86803; 87389; 93005; 96374; 99285; J1885; Q9967

== ENCOUNTER 2023-12-29 16:35 | Emergency (ER) | payer BC, OTHER, SELFPAY ==
--- NOTE | 2023-12-29 16:41 | XR_ITS ---
PROCEDURE INFORMATION: Exam: XR Left Shoulder Exam date and time: 12/29/2023 4:54 PM Age: 58 years old Clinical indication: Pain; Shoulder; Left TECHNIQUE: Imaging protocol: Radiologic exam of the left shoulder. Views: 2 or more views. COMPARISON: No relevant prior studies available. FINDINGS: Bones/joints: The glenohumeral joint shows mild joint space narrowing. There are small osteophytes at the joint margins, particularly at the inferior aspect of the humeral head and the glenoid. Subchondral sclerosis is noted at the humeral head and glenoid. The acromioclavicular (AC) joint also demonstrates mild joint space narrowing and small osteophytes. No acute fracture or dislocation is identified. The visualized portions of the ribs, scapula, and clavicle are intact and demonstrate normal bone density. Soft tissues: The soft tissues appear unremarkable. No evidence of significant soft tissue swelling or calcification. IMPRESSION: 1. Mild degenerative changes of the glenohumeral and acromioclavicular joints consistent with early osteoarthritis. 2. No evidence of acute osseous injury or significant soft tissue abnormality.
--- NOTE | 2023-12-29 16:52 | XR_ITS ---
PROCEDURE INFORMATION: Exam: XR Left Humerus Exam date and time: 12/29/2023 4:55 PM Age: 58 years old Clinical indication: Pain; Shoulder; Left TECHNIQUE: Imaging protocol: Radiologic exam of the left humerus. Views: 2 or more views. COMPARISON: CR XR SHOULDER LT MIN 2V 12/29/2023 4:54 PM FINDINGS: Bones/joints: Normal. Soft tissues: Normal. IMPRESSION: No acute findings.
[2023-12-29 17:36] VITALS: BP 148/76; PULSE 72; RESP 20; TEMP 36.6; O2SAT 99; BMI 29.2
--- NOTE | 2023-12-29 17:41 | EXP.UTC ---
Discharge Plan Prescriptions Prescriptions: No Action hydromorphone 2 MG tablet 2 mg PO Q4HP PRN (Reason: Moderate To Severe Pain) Qty: 10 0RF naproxen 500 mg tablet 500 mg PO BID Qty: 20 0RF lidocaine [Lidoderm] 5 % adhesive patch,medicated 1 patch topical DAILY Qty: 15 0RF Rx Instructions: leave on most painful area for up to 12 hrs meloxicam 15 MG tablet 15 mg PO DAILY famotidine 20 MG tablet 20 mg PO BID lisinopril 10 MG tablet 10 mg PO DAILY cyanocobalamin (vitamin B-12) 5,000 MCG tablet,disintegrating 2,500 mcg PO DAILY cholecalciferol (vitamin D3) 1,000 UNIT capsule 5,000 unit PO DAILY Referrals Follow up/Referrals: Bonifacio Andrade MD [Primary Care Provider] - See instructions Activity Restrictions/Add. Instructions Additional Instructions/Restrictions: Follow up with your Orthopedic Doctor at [facility] as discussed *RICE, Rest the extremity, Ice 15-20 minutes 3-4 times daily, Compress- wear the jackie wrap as discussed as much as possible to help reduce swelling and pain, Elevate the extremity when at rest *SLing is for support and help control swelling, use it except in the shower. Be sure that is not to tight but not to loose either make sure to move shoulder as much as possible *Elevate when resting? *Ibuprofen 600-800mg every 6-8 hours as needed for pain an inflammation. If need something more can take Tylenol in between doses of Ibuprofen to help Immediately follow up with your family doctor for new or worsening of symptoms, or no noticeable improvement over the next 3-5 days Clinical Impressions Clinical Impression: Injury of shoulder Instructions Patient Instructions: How To Perform RICE (Rest, Ice, Compress, Elevate), How to Use a Sling, Ibuprofen Print Language Print Language: Wolof Discharge ED Provider: Janice Almeida [facility] [place] HPI General Stated complaint: AO12/28 LT shoulder inj Mode of Arrival: Ambulatory Source of Information: Patient Time Seen by Provider: 12/29/23 17:41 Description of Symptoms (Recalled from Triage Doc. by RN): SHOULDER INJURY HEENT Symptoms (Recalled from RN notes): No Resp Symptoms (Recalled from RN notes): No Skin Symptoms (Recalled from RN notes): No MS Symptoms (Recalled from RN notes): Yes Functional Status (Recalled from RN notes): HURTS TO MOVE ARM History of Present Illness Provider Complaint: Patient states that he hurt his shoulder last week and earlier he got tied up in the hose and fell and landed on his left shoulder area States that since then he has been having pain with movement and hurts when he tries to raise his arm Denies any other injury Related Data Home Medications ?Medication ?Instructions ?Recorded ?Confirmed cholecalciferol (vitamin D3) 25 5,000 unit PO DAILY Supplement 07/18/19 04/01/21 mcg (1,000 unit) capsule cyanocobalamin (vitamin B-12) 2,500 mcg PO DAILY Supplement 07/18/19 04/01/21 5,000 mcg disintegrating tablet famotidine 20 mg tablet 20 mg PO BID acid reflux 07/18/19 04/01/21 lisinopril 10 mg tablet 10 mg PO DAILY bp 07/18/19 04/01/21 meloxicam 15 mg tablet 15 mg PO DAILY Arthritis 07/18/19 04/01/21 Previous Rx's ?Medication ?Instructions ?Recorded hydromorphone 2 mg tablet 2 mg PO Q4HP PRN Moderate To 03/25/21 Severe Pain #10 tabs lidocaine 5 % topical patch 1 patch topical DAILY #15 ea 11/04/23 (Lidoderm) naproxen 500 mg tablet 500 mg PO BID #20 tabs 11/04/23 Allergies Allergy/AdvReac Type Severity Reaction Status Date / Time celecoxib (From Celebrex) Allergy Verified 04/01/21 09:13 hydrocodone Allergy Verified 04/01/21 09:13 Worker's Comp Is this a Worker's Comp case?: No [facility] Disclaimer: The information contained in this section may have been updated after the patient was seen, as this information can be updated by other users. Social History Smoking Status: Current every day smoker alcohol intake: current alcohol intake frequency: 0-2 drinks per day substance use type: denies use current occupational status: employed Travel in the last 8 weeks: None household members: spouse and family housing: house caffeine: Yes ROS Obtained: Yes All systems reviewed & no additional complaints except as documented and Yes Systems reviewed as appropriate & no additional complaints except as documented Constitutional Constitutional: Reports system reviewed and no additional complaints, except as documented and Reports as per HPI ENT Ears, Nose, Mouth, and Throat: Reports system reviewed and no additional complaints, except as documented and Reports as per HPI Cardiovascular Cardiovascular: Reports system reviewed and no additional complaints, except as documented and Reports as per HPI Respiratory Respiratory: Reports system reviewed and no additional complaints, except as documented and Reports as per HPI Gastrointestinal Gastrointestingal: Reports system reviewed and no additional complaints, except as documented and as per HPI Musculoskeletal Musculoskeletal: Reports system reviewed and no additional complaints, except as documented, Reports as per HPI and Reports other Comments: Pain in left shoulder and upper arm after falling earlier Physical Exam General General appearance: alert and in no apparent distress Chest Chest inspection: Present normal inspection and symmetric chest wall rise Respiratory Respiratory exam: Present normal lung sounds bilaterally; Absent respiratory distress or wheezes Cardiovascular Cardiovascular exam: Present regular rate, normal rhythm and normal heart sounds Expanded Upper Extremity Exam Left: Shoulder exam: Present tenderness; Absent swelling, laceration, ecchymosis, deformity, dislocation or erythema Arm exam: Present tenderness; Absent swelling, abrasion, laceration, ecchymosis, deformity or erythema Elbow exam: Present normal inspection Forearm/Wrist exam: Present normal inspection Hand exam: Present normal inspection Vascular exam: Normal capillary refill Comment: able to move hand and fingers pain worse when tries to raise arm Neurological Exam Neurological exam: Present alert, oriented X3 and normal gait Medical Decision Making Medical Records Screening: Per USPSTF and CDC recommendations, given the prevalence of disease in our region, it is our hospital?s policy to screen for HIV and viral Hepatitis for all patients aged 18 and over and those with ongoing risk factors. Andres Inquiry Pt receiving controlled substance: No Andres was queried for this patient: No Vital Signs: 12/29/23 17:36 Temperature 97.9 F Temperature Source Oral Pulse Rate [Left Radial] 72 Respiratory Rate 20 Blood Pressure [Left Arm] 148/76 H Blood Pressure Mean [Left Arm] 100 02 Sat by Pulse Oximetry 99 Orders (Tests/Meds): ORDERS Category Date Time Status Humerus XR left [XR humerus LT] Stat Exams 12/29/23 16:52 Completed Shoulder XR left minimum 2 views [XR shoulder LT min 2V Exams 12/29/23 16:41 Completed ] Stat Radiology Data #1: Image(s): Shoulder Image Reviewed: Yes I have reviewed radiologist's interpretation IMPRESSION: 1. Mild degenerative changes of the glenohumeral and acromioclavicular joints consistent with early osteoarthritis. 2. No evidence of acute osseous injury or significant soft tissue abnormality. #2: Image(s): Humerus Image Reviewed: Yes I have reviewed radiologist's interpretation IMPRESSION: No acute findings.
[2023-12-29 18:00] VITALS: BP 148/76; PULSE 72; RESP 20; TEMP 36.6
== END 2023-12-29 18:02 | disposition home or self-care (01) ==
PROVIDERS: Emergency Provider Nurse Practitioner; PCP Internal Medicine Adolescent Medicine
DX: S49.92XA Unspecified injury of left shoulder and upper arm, initial encounter (principal); M25.512 Pain in left shoulder
CPT/HCPCS: 73030; 73060; 99212; G0381

== ENCOUNTER 2024-05-11 08:00 | Outpatient (RCR) | payer BC, OTHER, SELFPAY | END 2024-05-11 23:59 | disposition home or self-care (01) | LOC: OT 08:00 | PROVIDERS: PCP Internal Medicine Adolescent Medicine; Visit Provider Physician Assistant Surgical | DX: Z98.890 Other specified postprocedural states (principal) | CPT/HCPCS: 97014; 97110; 97140; 97165; 97530; G0283 ==

== ENCOUNTER 2024-06-13 09:00 | Outpatient (RCR) | payer BC, OTHER, SELFPAY | END 2024-06-13 23:59 | disposition home or self-care (01) | LOC: OT 09:00 | PROVIDERS: PCP Internal Medicine Adolescent Medicine; Visit Provider Physician Assistant Surgical | DX: Z98.890 Other specified postprocedural states (principal) | CPT/HCPCS: 97014; 97110; 97140; 97168; 97530; G0283 ==

== ENCOUNTER 2024-07-13 08:00 | Outpatient (RCR) | payer BC, OTHER, SELFPAY | END 2024-07-13 23:59 | disposition home or self-care (01) | LOC: OT 08:00 | PROVIDERS: PCP Internal Medicine Adolescent Medicine; Visit Provider Physician Assistant Surgical | DX: Z47.89 Encounter for other orthopedic aftercare (principal); Z98.890 Other specified postprocedural states | CPT/HCPCS: 97014; 97110; 97140; G0283 ==